=== PATIENT | female | born 1965 | race Caucasian/White ===

== ENCOUNTER 2019-11-06 05:28 | Day surgery (SDC) | payer MEDICARE, MEDICAID ==
[~2019-11-06] VITALS: Ht 154.9 cm; Wt 140.9 kg
[~2019-11-06 05:28] MED LIST: AMIO100T4 PO; APIX5TAB PO; ASPI-728 PO; ATOR40TA28 PO; FURO20 PO; METO25 PO; OMEP20 PO; SODIUM CHLORIDE 0.9% 1,000 ML ONE
[2019-11-06] MEDS ORDERED: LIDOCAINE 1% 10 ML VIAL IM ONE (05:29)
[2019-11-06] MEDS ORDERED: PROPOFOL 1% 20 ML VIAL IVP ONE (05:29)
[2019-11-06] MEDS ORDERED: SODIUM CHLORIDE 0.9% 1,000 ML IV ONE (05:30)
== END 2019-11-06 09:20 | disposition home or self-care (01) ==
LOC: SURGERY 05:28
PROVIDERS: ATTEND Student in an Organized Health Care Education/Training Program
DX: K62.5 Hemorrhage of anus and rectum (principal); R12 Heartburn; D12.2 Benign neoplasm of ascending colon; D12.3 Benign neoplasm of transverse colon; K57.30 Diverticulosis of large intestine without perforation or abscess without bleeding; K64.8 Other hemorrhoids; K64.4 Residual hemorrhoidal skin tags; K25.9 Gastric ulcer, unspecified as acute or chronic, without hemorrhage or perforation; K29.50 Unspecified chronic gastritis without bleeding; J45.909 Unspecified asthma, uncomplicated; I25.2 Old myocardial infarction; I48.91 Unspecified atrial fibrillation; E78.5 Hyperlipidemia, unspecified; K21.9 Gastro-esophageal reflux disease without esophagitis; I25.10 Atherosclerotic heart disease of native coronary artery without angina pectoris; I11.0 Hypertensive heart disease with heart failure; I50.9 Heart failure, unspecified; E66.9 Obesity, unspecified; Z68.43 Body mass index [BMI] 50.0-59.9, adult; Z86.711 Personal history of pulmonary embolism; Z95.0 Presence of cardiac pacemaker; Z83.3 Family history of diabetes mellitus
CPT/HCPCS: 43239; 45380; 45385; 88305; 88312; 88313; 93005; C1769; J2704; J3490; J7030